=== PATIENT | male | born 1945 | race Caucasian/White ===

== ENCOUNTER 2018-11-17 15:42 | Inpatient (IN) | payer OTHER, MEDICAID ==
[2018-11-17 16:02] LABS: ADD MAN DIFF? NO
[2018-11-17 16:05] LABS: ABNORMAL IP MESSAGE 1; BASOPHIL # 0.1 10^3/ul (0.0-0.1); BASOPHILS % 0.6 % (0.0-2.0); EOSINOPHILS # 0.2 10^3/ul (0.0-0.5); EOSINOPHILS % 2.3 % (0.0-7.0); HEMATOCRIT 30.6 % (42.0-52.0); HEMOGLOBIN 7.6 g/dl (14.0-18.0); LYMPHOCYTES # 2.1 10^3/ul (0.8-2.9); LYMPHOCYTES % 25.3 % (15.0-51.0); MEAN CORPUSCULAR HEMOGLOBIN 16.7 pg (29.0-33.0); MEAN CORPUSCULAR HGB CONC 24.8 g/dl (32.0-37.0); MEAN CORPUSCULAR VOLUME 67.1 fl (82.0-101.0); MONOCYTE # 0.9 10^3/ul (0.3-0.9); MONOCYTES % 11.1 % (0.0-11.0); NEUTROPHIL # 5.1 10^3/ul (1.6-7.5); NEUTROPHILS % 60.3 % (39.0-77.0); NUCLEATED RED BLOOD CELLS% 0.2 /100WBC (0.0-0.0); PLATELET COUNT 248 10^3/UL (140-415); POSITIVE DIFF @See below; RED BLOOD COUNT 4.56 10^6/ul (4.70-6.10); RED CELL DISTRIBUTION WIDTH 20.8 % (11.5-14.5)
[2018-11-17 16:05] LABS: WHITE BLOOD COUNT 8.4 10^3/ul (4.8-10.8)
[2018-11-17] MEDS: ALBUTEROL 0.083% (NEB) 2.5 MG/3 ML AMP NEB (16:07)
[2018-11-17] MEDS: ASPIRIN 81 MG TAB PO (16:16)
[2018-11-17 16:22] LABS: ANION GAP 7 (5-13); BLOOD UREA NITROGEN 22 mg/dl (7-20); CALCIUM 9.1 mg/dl (8.4-10.2); CARBON DIOXIDE 29 mmol/L (21-31); CHLORIDE 105 mmol/L (97-110); CREATININE 0.88 mg/dl (0.61-1.24); GLUCOSE 116 mg/dl (70-220); POTASSIUM 4.4 mmol/L (3.5-5.1); SODIUM 141 mmol/L (135-144)
[2018-11-17] MEDS: DILTIAZEM 25 MG INJ IV (16:23)
[2018-11-17 16:34] LABS: TROPONIN-I < 0.012 ng/ml (0.000-0.120)
[2018-11-17] MEDS ORDERED: ACETAMINOPHEN 325 MG TAB PO ×2 (18:30→19:30)
[2018-11-17] MEDS ORDERED: ONDANSETRON 4 MG INJ IV (18:30)
[2018-11-17 18:47] LABS: OCCULT BLOOD STOOL NEGATIVE (NEGATIVE)
[2018-11-17] MEDS ORDERED: NACL 0.9% 3 ML SYG IV (19:30)
[2018-11-17] MEDS ORDERED: DOCUSATE SODIUM 100 MG CAP PO (19:30)
[2018-11-17] MEDS ORDERED: ONDANSETRON 4 MG TAB PO (19:30)
[2018-11-17] MEDS: METOPROLOL (XL) 50 MG TAB PO (20:49)
[2018-11-17] MEDS: FAMOTIDINE 20 MG TAB PO (20:49)
[2018-11-17] MEDS: APIXABAN 5 MG TABLET PO (20:49)
[2018-11-17 22:21] LABS: CREATINE KINASE 26 IU/L (23-200)
[2018-11-17 22:34] LABS: CK INDEX 2.4; CK-MB 0.62 ng/ml (0.0-2.4); TROPONIN-I < 0.012 ng/ml (0.000-0.120)
[2018-11-18 05:44] LABS: WHITE BLOOD COUNT 6.6 10^3/ul (4.8-10.8)
[2018-11-18 05:44] LABS: ABNORMAL IP MESSAGE 1; HEMATOCRIT 26.3 % (42.0-52.0); MEAN CORPUSCULAR HEMOGLOBIN 17.1 pg (29.0-33.0); MEAN CORPUSCULAR HGB CONC 25.5 g/dl (32.0-37.0); MEAN CORPUSCULAR VOLUME 67.1 fl (82.0-101.0); NUCLEATED RED BLOOD CELLS% 0.3 /100WBC (0.0-0.0); PLATELET COUNT 179 10^3/UL (140-415); POSITIVE DIFF @See below; RED BLOOD COUNT 3.92 10^6/ul (4.70-6.10); RED CELL DISTRIBUTION WIDTH 20.4 % (11.5-14.5)
[2018-11-18 06:05] LABS: CREATINE KINASE 23 IU/L (23-200)
[2018-11-18 06:17] LABS: ANION GAP 6 (5-13); BLOOD UREA NITROGEN 24 mg/dl (7-20); CALCIUM 8.6 mg/dl (8.4-10.2); CARBON DIOXIDE 26 mmol/L (21-31); CHLORIDE 107 mmol/L (97-110); CHOLESTEROL 96 mg/dl (100-200); CREATININE 0.71 mg/dl (0.61-1.24); GLUCOSE 134 mg/dl (70-220); HDL CHOLESTEROL 16 mg/dl (31-75); LDL CHOLESTEROL,CALCULATED 69 mg/dl; POTASSIUM 4.4 mmol/L (3.5-5.1); SODIUM 139 mmol/L (135-144); TRIGLYCERIDES 57 mg/dl (0-149)
[2018-11-18 06:18] LABS: CK INDEX 3.3; CK-MB 0.77 ng/ml (0.0-2.4); TROPONIN-I < 0.012 ng/ml (0.000-0.120)
[2018-11-18 06:31] LABS: HEMOGLOBIN 6.7 g/dl (14.0-18.0)
[2018-11-18 06:32] LABS: ADD MAN DIFF? YES
[2018-11-18 07:03] LABS: HEMOGLOBIN A1C 5.9 % (0-5.9)
[2018-11-18] MEDS: METOPROLOL (XL) 50 MG TAB PO ×2 (09:06→20:48)
[2018-11-18] MEDS: FUROSEMIDE 40 MG INJ IV (09:06)
[2018-11-18] MEDS: FAMOTIDINE 20 MG TAB PO ×2 (09:06→20:47)
[2018-11-18 10:14] LABS: ANISOCYTOSIS 3+ (0-0); BAND NEUTROPHILS #M 0.3 10^3/ul (0.0-0.6); BAND NEUTROPHILS % (M) 6 % (0-4); BASOPHILS % (M) 1 % (0-2); ELLIPTO 1+ (0-0); EOSINOPHILS % (M) 1 % (0-7); HYPOCHROMASIA 2+ (0-0); LYMPHOCYTES #M 1.2 10^3/ul (0.8-2.9); LYMPHOCYTES % (M) 19 % (15-51); MICROCYTOSIS 3+ (0-0); MONOCYTE #M 0.7 10^3/ul (0.3-0.9); MONOCYTES % (M) 12 % (0-11); OVALOCYTES 1+ (0-0); PLATELET ESTIMATE NORMAL; POIKILOCYTOSIS 2+ (0-0); POLYCHROMASIA 3+ (0-0); SEGMENTED NEUTROPHILS (M) % 61 % (39-77); SMUDGE%M 1 % (0-0); TARGET CELLS 1+ (0-0)
[2018-11-18] MEDS: APIXABAN 5 MG TABLET PO (10:28)
[2018-11-18 10:43] LABS: IRON 17 ug/dl (35-150)
[2018-11-18 10:52] LABS: % IRON SATURATION 5 % SAT (22-52); TOTAL IRON BINDING CAPACITY 374 ug/dl (241-421)
[2018-11-18 12:06] LABS: ALANINE AMINOTRANSFERASE 21 IU/L (13-69); ALBUMIN 3.9 g/dl (3.3-4.9); ALKALINE PHOSPHATASE 80 IU/L (42-121); ASPARTATE AMINO TRANSFERASE 24 IU/L (15-46); BILIRUBIN,INDIRECT 0.8 mg/dl (0-1.1); BILIRUBIN,TOTAL 0.8 mg/dl (0.2-1.3); CREATINE KINASE 25 IU/L (23-200); TOTAL PROTEIN 7.2 g/dl (6.1-8.1)
[2018-11-18 12:18] LABS: CK INDEX 2.7; CK-MB 0.67 ng/ml (0.0-2.4); TROPONIN-I < 0.012 ng/ml (0.000-0.120)
[2018-11-18 14:35] LABS: FOLATE 17.1 ng/ml (2.8-20.0)
[2018-11-18 15:05] LABS: IMMEDIATE SPIN CROSSMATCH 1 2
[2018-11-18] MEDS: MAGNESIUM CITRATE 300 ML BTL PO (17:30)
[2018-11-18] MEDS: BISACODYL (EC) 5 MG TAB PO (18:24)
[2018-11-18] MEDS: POLYETHYLENE GLYCOL 3350 119 GM POWDER PO (20:09)
[2018-11-18 23:59] LABS: OCCULT BLOOD STOOL NEGATIVE (NEGATIVE)
[2018-11-19 05:44] LABS: ADD MAN DIFF? NO
[2018-11-19 05:47] LABS: ABNORMAL IP MESSAGE 1; BASOPHIL # 0.1 10^3/ul (0.0-0.1); BASOPHILS % 0.5 % (0.0-2.0); EOSINOPHILS # 0.2 10^3/ul (0.0-0.5); EOSINOPHILS % 1.7 % (0.0-7.0); HEMATOCRIT 33.3 % (42.0-52.0); HEMOGLOBIN 8.9 g/dl (14.0-18.0); LYMPHOCYTES # 2.1 10^3/ul (0.8-2.9); LYMPHOCYTES % 20.2 % (15.0-51.0); MEAN CORPUSCULAR HEMOGLOBIN 18.7 pg (29.0-33.0); MEAN CORPUSCULAR HGB CONC 26.7 g/dl (32.0-37.0); MEAN CORPUSCULAR VOLUME 70.1 fl (82.0-101.0); MEAN PLATELET VOLUME 10.8 fl (7.4-10.4); MONOCYTE # 1.1 10^3/ul (0.3-0.9); MONOCYTES % 10.8 % (0.0-11.0); NEUTROPHIL # 6.8 10^3/ul (1.6-7.5); NEUTROPHILS % 66.5 % (39.0-77.0); PLATELET COUNT 207 10^3/UL (140-415); POSITIVE DIFF @See below; RED BLOOD COUNT 4.75 10^6/ul (4.70-6.10); RED CELL DISTRIBUTION WIDTH 23.1 % (11.5-14.5)
[2018-11-19 05:47] LABS: WHITE BLOOD COUNT 10.2 10^3/ul (4.8-10.8)
[2018-11-19] MEDS: POLYETHYLENE GLYCOL 3350 119 GM POWDER PO (05:51)
[2018-11-19] MEDS: FAMOTIDINE 20 MG TAB PO ×2 (07:45→21:05)
[2018-11-19] MEDS: METOPROLOL (XL) 50 MG TAB PO ×2 (07:45→21:05)
[2018-11-19] MEDS: BISACODYL (EC) 5 MG TAB PO (08:18)
[2018-11-19] MEDS ORDERED: PROPOFOL 200 MG INJ (14:00)
[2018-11-19] MEDS: LIDOCAINE 2% (SDV) 5 ML INJ (14:01)
[2018-11-19] MEDS: PROPOFOL 60 ML ×2 (14:01→14:41)
[2018-11-19 16:56] LABS: HAPTOGLOBIN 178 mg/dL (43-212)
[2018-11-19 18:42] LABS: CARCINOEMBRYONIC ANTIGEN 2.2 ng/ml (0.0-5.0)
[2018-11-19] MEDS: SOD CHLORIDE 0.9% 100 ML (20:25)
[2018-11-19] MEDS: IOHEXOL 300MG/ML 150 ML BTL (20:25)
[2018-11-20] MEDS: FAMOTIDINE 20 MG TAB PO (08:27)
[2018-11-20] MEDS: METOPROLOL (XL) 50 MG TAB PO (08:27)
== END 2018-11-20 11:55 | disposition home or self-care (01) | DRG 375 ==
LOC: E/R 15:42 → 6WM 18:18
PROVIDERS: Pediatrics
PROC: 0D7K8DZ Dilation of Ascending Colon with Intraluminal Device, Via Natural or Artificial Opening Endoscopic (ICD-10-PCS; principal; 2018-11-19 13:35)
PROC: 0D7N8DZ Dilation of Sigmoid Colon with Intraluminal Device, Via Natural or Artificial Opening Endoscopic (ICD-10-PCS; 2018-11-19 13:35)
PROC: 0D7P8DZ Dilation of Rectum with Intraluminal Device, Via Natural or Artificial Opening Endoscopic (ICD-10-PCS; 2018-11-19 13:35)
PROC: 0DB68ZX Excision of Stomach, Via Natural or Artificial Opening Endoscopic, Diagnostic (ICD-10-PCS; 2018-11-19 13:35)
PROC: 0DB78ZX Excision of Stomach, Pylorus, Via Natural or Artificial Opening Endoscopic, Diagnostic (ICD-10-PCS; 2018-11-19 13:35)
PROC: 0D598ZZ Destruction of Duodenum, Via Natural or Artificial Opening Endoscopic (ICD-10-PCS; 2018-11-19 13:35)
PROC: 30233N1 Transfusion of Nonautologous Red Blood Cells into Peripheral Vein, Percutaneous Approach (ICD-10-PCS; 2018-11-19 13:35)
DX: C18.7 Malignant neoplasm of sigmoid colon (principal); C18.2 Malignant neoplasm of ascending colon; D62 Acute posthemorrhagic anemia; I27.20 Pulmonary hypertension, unspecified; I11.0 Hypertensive heart disease with heart failure; I48.2 Chronic atrial fibrillation; I50.9 Heart failure, unspecified; I08.3 Combined rheumatic disorders of mitral, aortic and tricuspid valves; J44.9 Chronic obstructive pulmonary disease, unspecified; D50.9 Iron deficiency anemia, unspecified; I25.10 Atherosclerotic heart disease of native coronary artery without angina pectoris; K64.8 Other hemorrhoids; D12.0 Benign neoplasm of cecum; K31.819 Angiodysplasia of stomach and duodenum without bleeding; K31.7 Polyp of stomach and duodenum; F17.200 Nicotine dependence, unspecified, uncomplicated; Z79.82 Long term (current) use of aspirin; Z79.02 Long term (current) use of antithrombotics/antiplatelets; Z95.5 Presence of coronary angioplasty implant and graft
CPT/HCPCS: 36415; 36430; 71045; 71260; 74177; 80048; 80061; 80076; 82270; 82378; 82550; 82553; 82607; 82746; 83010; 83036; 83540; 84443; 84484; 85025; 86850; 86900; 86901; 86920; 88305; 88312; 93005; 93306; 94664; 96374; 99285-25